=== PATIENT | female | born 1965 | race Caucasian/White ===

== ENCOUNTER 2017-08-22 15:16 | Emergency (ER) | payer OTHER ==
[~2017-08-22] VITALS: Ht 160 cm; Wt 82.6 kg
[2017-08-22 17:11] VITALS: BP 144/99
== END 2017-08-22 17:19 | disposition home or self-care (01) ==
LOC: ER 15:16
DX: G89.29 Other chronic pain (principal); M54.2 Cervicalgia; G43.909 Migraine, unspecified, not intractable, without status migrainosus; Z76.0 Encounter for issue of repeat prescription